=== PATIENT | male | born 2000 | race Caucasian/White ===

== ENCOUNTER 2022-01-21 12:56 | Emergency (ER) | payer OTHER, SELFPAY ==
--- NOTE | 2022-01-21 12:58 | ED.URI ---
HPI - URI/Sore Throat General Chief Complaint: Upper Respiratory Infection Stated Complaint: Sinus Congestion/Sore Throat Time Seen by Provider: 01/21/22 12:58 Source: patient Mode of arrival: ambulatory Limitations: no limitations History of Present Illness HPI Narrative: Mr. Del Castillo is a 21-year-old male patient presenting to complaints of possible sinus infection. He reports Related Data Home Medications Medication Instructions Recorded Confirmed albuterol sulfate 1.25 mg/3 mL 1.25 mg inhalation Q4H 01/21/22 01/21/22 solution for nebulization Allergies Allergy/AdvReac Type Severity Reaction Status Date / Time amoxicillin Allergy Unknown HIVES Verified 10/06/18 18:30 Review of Systems Review of Systems: Pertinent positives per HPI. Patient denies any fever, chills, rash, headache, visual changes, dizziness, cough, sore throat, shortness of breath, chest pain, palpitations, nausea, vomiting, diarrhea, constipation, abdominal pain, or any urinary issues. PMFSH Comments At the time of my signature, I reviewed and agree with the nursing past medical, surgical, social, and family history. There is no relevant family history pertinent to the patient complaint. Exam Narrative: General: Well-developed, well nourished, in no apparent distress Head: Normocephalic, atraumatic Eyes: Pupils equally round and reactive to light bilaterally, EOM intact, sclera and conjunctive clear, no discharge, lids normal Ears: TMs intact and clear, ear canals clear, no drainage, grossly hearing normal. Nose: Nares patent, clear nasal discharge, mild inflammation, no sinus tenderness. Mouth: Oropharynx without lesions or masses, good dentition, MMM. PND Neck: Supple, trachea midline, no enlargement of anterior or posterior cervical nodes, no thyroid masses or goiter palpable. Cardio: Regular rate and rhythm, s1 and s2 normal, no murmur appreciated. Resp: Clear to auscultation bilaterally anteriorly and posteriorly, no rhonchi, rales, wheezing or rubs Course Course Emergency Course: Portions of this record may have been created with voice recognition software. Level of Care: Express Care Visit Vital Signs Vital signs: Vital signs reviewed MDM - URI/Sore Throat MDM Narrative Medical decision making narrative: At the time of visit patient is resting comfortably on the exam table. I suspect patient has an upper respiratory infection and explained to him that we do not treat sinusitis until after 10 days or more of symptoms. He voiced understanding of discharge instructions and agrees to the treatment plan. I will send him with a prescription for some prednisone to help alleviate the congestion and pressure. Differential Diagnosis Differential diagnosis: Likely upper respiratory infection, sinusitis, viral infection, bronchitis, influenza, pharyngitis and other (covid) Discharge Plan Discharge Clinical Impression: Upper respiratory infection Qualifiers: URI type: unspecified viral URI Qualified Code(s): J06.9 - Acute upper respiratory infection, unspecified Patient Disposition: Home, Self-Care Condition: Stable Instructions: Antibiotic Form, Cold Symptoms (ED) Additional Instructions: Take prescription medications - prednisone as prescribed Increase fluids and stay well hydrated Tylenol/motrin for pain/fever Flonase and OTC antihistamines as directed Vicks vapor rub to open sinuses Sinus rinses for congestion Cepacol spray, cough drops, throat lozenges, warm tea with honey/lemon, gargle salt water to soothe throat BRAT diet for diarrhea Clear liquids x 24 hours then advance as tolerated for nausea/vomiting May return to the clinic if symptoms worsen Go to the ED if you develop a worsening in your condition- high fever not controlled by Tylenol or Motrin, dehydration, weakness, lethargy, shortness of breath, or chest pain. Follow up with your PCP in 3-5 days if symptoms persist. Prescription
[2022-01-21 13:05] VITALS: BP 139/69; PULSE 86; RESP 14; TEMP 37.4; O2SAT 98
== END 2022-01-21 13:19 | disposition home or self-care (01) ==
PROVIDERS: Emergency Provider Nurse Practitioner Family
DX: J06.9 Acute upper respiratory infection, unspecified (principal)
CPT/HCPCS: 99213; G0463

== ENCOUNTER 2022-10-05 16:06 | Emergency (ER) | payer OTHER, SELFPAY ==
--- NOTE | 2022-10-05 16:14 | ED_ITS ---
HPI - Extremity Injury (Lower) General Chief Complaint: Extremity Injury, Lower Stated Complaint: left ankle injury Source: patient and RN notes reviewed History of Present Illness HPI Narrative: 22 yo M presents to urgent care with complaints of left foot pain, i ntermittently, since last Tuesday. Pt states his pain occurs with walking and he has not been to school today or yesterday b/c he didn't want to flare up. Pt states he began to play soccer recently and thought he might have sprained it during this. Pt states his pain is 1/10 on the pain scale. Pt denies any numbness, tingling, or other injury or complaint. Related Data Allergies Allergy/AdvReac Type Severity Reaction Status Date / Time amoxicillin Allergy Unknown HIVES Verified 10/06/18 18:30 Review of Systems Review of Systems: Pertinent positives and pertinent negatives per HPI. PMFSH Comments At the time of my signature, I reviewed and agree with the nursing past medical, surgical, social, and family history. There is no relevant family history pertinent to the patient complaint. Exam Narrative: GENERAL: This is a well-nourished, well-developed patient, in no apparent distress. HEAD: normocephalic, atraumatic. EYES: Sclera clear/white. Vision is grossly intact. EARS: External ears normal, auditory canals clear and without drainage. Hearing grossly intact. NECK: Neck supple, non-tender without lymphadenopathy, masses or thyromegaly. CARDIOVASCULAR: Regular rate RESPIRATORY: No respiratory distress SKIN: warm, intact with no suspicious lesions or rash, good texture and turgor. NEURO: awake, alert, and oriented to person, place and time. There were no obvious focal neurologic abnormalities. EXTREMITIES: No clubbing, cyanosis, or edema. No joint tenderness, effusion, or edema noted. No bony tenderness. Course Course Level of Care: Express Care Visit Vital Signs Vital signs: reviewed. MDM - Extremity Injury (Lower) MDM Narrative Medical decision making narrative: Use the RICE method at home. May take ibuprofen and/or Tylenol if needed. If symptoms persist in 1 week after conservative treatment, follow-up with orthopedist. Pt states he has an JESSICA wrap at home. Differential Diagnosis Differential diagnosis: Likely ankle sprain and strain, ankle fracture and other (dislocation) Critical Care Time Critical Care Time Critical Care Time: No Discharge Plan Discharge Clinical Impression: Foot sprain Qualifiers: Encounter type: initial encounter Laterality: left Qualified Code(s): S93.602A - Unspecified sprain of left foot, initial encounter Patient Disposition: Home, Self-Care Condition: Stable Instructions: Foot Sprain (ED), P.R.I.C.E. Treatment (ED) Additional Instructions: Use the RICE method at home. May take ibuprofen and/or Tylenol if needed. If symptoms persist in 1 week after conservative treatment, follow-up with orthopedist. Follow-up/Referrals: PHYSICIAN NOT ON STAFF,NONSTAFF [Primary Care Provider] - Artie Amador MD [Physician] - Stand Alone Forms: Work/School Release IP Time of Disposition: 16:20
[2022-10-05 16:15] VITALS: BP 152/83; PULSE 74; RESP 16; TEMP 37.1; O2SAT 100
== END 2022-10-05 16:23 | disposition home or self-care (01) ==
PROVIDERS: Emergency Provider Nurse Practitioner Family
DX: S93.602A Unspecified sprain of left foot, initial encounter (principal); X58.XXXA Exposure to other specified factors, initial encounter
CPT/HCPCS: 99212; G0463